=== PATIENT | female | born 1990 | race African-American/Black ===

== ENCOUNTER 2020-03-11 02:40 | Emergency (ER) | payer MEDICAID ==
[~2020-03-11] VITALS: Ht 160 cm; Wt 59.0 kg
[~2020-03-11 02:40] MED LIST: PRENTAB28 PO
[2020-03-11 03:40] LABS: Basophils # (auto) 0 10 ^3/uL (0-0.2); Basophils % (auto) 0.3 % (0.0-2.0); Eosinophils # (auto) 0.1 10 ^3/uL (0-0.8); Eosinophils % (auto) 0.5 % (0.0-7.0); Hematocrit 42.2 % (36.0-46.0); Hemoglobin 14.9 g/dL (12.2-16.2); Lymphocytes # (auto) 0.4 10 ^3/uL (0.4-5.4); Lymphocytes % (auto) 3.9 % (10.0-50.0); Mean Corpuscular Hemoglobin 30.8 pg (28.0-32.0); Mean Corpuscular Hgb Conc. 35.3 g/dL (32.0-36.0); Mean Corpuscular Volume 87.1 fL (80.0-100.0); Monocytes # (auto) 0.4 10 ^3/uL (0-1.3); Monocytes % (auto) 3.6 % (0.0-12.0); Neutrophils # (auto) 9.9 10 ^3/uL (1.6-8.6); Neutrophils % (auto) 91.7 % (37.0-80.0); Nucleated Red Blood Cells % 0.1 %; Platelet Count (auto) 245 10^3/uL (140-450); Red Blood Cells 4.85 10^6/uL (4.0-5.20); Red Cell Distribution Width 13.3 % (11.8-14.3); White Blood Cell 10.8 10^3/uL (4.4-10.8)
[2020-03-11 04:02] LABS: Albumin 4.2 g/dL (3.4-5.0); BUN/Creatinine Ratio 14.8; Calcium 8.9 mg/dL (8.5-10.1); Potassium 3.8 mmol/L (3.5-5.1)
[2020-03-11 04:05] LABS: Bilirubin, Total 0.7 mg/dL (0.2-1.0); Total Protein 7.9 g/dL (6.4-8.2)
[2020-03-11] MEDS ORDERED: SODIUM CHLORIDE 0.9% 500 ML IVB ONE (04:45)
[2020-03-11] MEDS ORDERED: ONDANSETRON HCL 4 MG/2 ML VIAL IV ONE (04:45)
[2020-03-11 05:11] LABS: Amylase 53 U/L (25-115); Lipase 97 U/L (73-393)
[2020-03-11 07:15] VITALS: BP 114/70
[2020-03-11] MEDS ORDERED: ACETAMINOPHEN 325 MG TAB PO ONE ×2 (07:22→07:30)
== END 2020-03-11 09:00 | disposition home or self-care (01) ==
LOC: ER 02:40 → EDBD 02:40 → ER 08:59
DX: K29.00 Acute gastritis without bleeding (principal)
CPT/HCPCS: 36415; 80053; 82150; 83690; 85025; 96361; 96374; 99283; J2405; J7040

== ENCOUNTER 2024-03-09 16:12 | Inpatient (IN) | payer MEDICAID ==
[~2024-03-09] VITALS: Ht 160 cm; Wt 75.5 kg
--- NOTE | 2024-03-09 17:44 | ED.PDOC ---
History of Present Illness HPI Comments HPI: Poor Historian. 34-year-old female 28 weeks gestation surrogate presents to the emergency department after blood drawn yesterday by her PCP's office who told her to go to the ER because your hemoglobin is low. She does not know exactly with the number is. She does feel overall generalized weakness and exertional dyspnea. Patient denies any bleeding from anywhere. She has history of anemia in the past but never received any blood transfusions before. Past Medcial History: Anemia Past Surgical History: REVIEW OF SYSTEMS: CONSTITUTIONAL: Denies acute: fever, diaphoresis, chills, HEAD: Denies acute: headache, photophobia Eyes: Denies acute: Double vision, vision loss, eye pain, eye discharge. EARS: Denies acute: tinnitus, hearing loss, ear discharge, ear pain, THROAT: Denies acute: sore throat, swelling, difficulty swallowing , pain with swallowing, change in voice. NECK: Denies acute: neck pain, neck swelling, stiff neck. HEART: Denies acute : chest pain, palpitations, LUNGS: Denies acute: wheezing, cough, hemoptysis ABDOMEN: Denies acute: abdominal pain, Nausea, Vomiting, diarrhea, melena , hematemesis, hematochezia SKIN: Denies acute: rash, redness, lesions, itchiness. EXTREMITIES: Denies acute: calf pain, numbness, tingling, weakness, denies pain in extremity. Denies acute: Low back pain. Neuro: Denies acute: focal neurological deficit, motor or sensory focal neurological deficit, tremors, seizure like activity, confusion, dizziness, change in mental status, loss of bowel or bladder function, cauda equina like symptoms. : Denies acute: dysuria, hematuria, flank pain, increase in urinary frequency. PSYCH: Denies acute: hallucination, suicidal ideation, homicidal ideation. FEMALE: Denies acute: abnormal vaginal bleeding, foul odor, unusual discharge. PHYSICAL EXAM: General: no acute distress, awake and alert. Head: normocephalic, atraumatic. Neck: supple, trachea is midline, no swelling. Throat: Normal phonation. Eyes:, no erythema, no purulent discharge, no proptosis, no icterus. Heart: regular rate, regular rhythm, no significant murmur appreciated. Lungs: no apparent respiratory distress, Able to speak in full sentences. No wheezing, no rhonchi, no crackles. No stridors Clear to auscultation bilaterally. Abdomen: non tender to palpation, non distended, soft, no guarding, no rebound, + bowel sounds. Gravid abdomen Neuro: Awake, Alert, oriented to name, self, situation, follows commands GCS=15. Speech is normal. Skin: no petechia, no purpura, no cyanosis, non-pale, not jaundice. Lower extremities: --no - Pitting edema no deformity, no focal swelling, no calf TTP. Makes eye contact. moves all four extremities. Face: no apparent facial droop. Ambulating in the ED independently. Chief Complaint: Abnormal LAB's Time Seen by MD: 16:13 Primary Care Provider: Bharathi Reviewed Notes: Nurses Notes, Allergies Allergies: Coded Allergies: NO KNOWN ALLERGIES (Unverified , 12/08/09) Home Meds Reported Medications Vit W/ Iron Carbonyl- ( PLUS IRON) Plus Fe Tab, 1 TAB PO DAILY, #30 TAB 11 Refills 01/27/14 Information Source: Patient Mode of Arrival: Ambulatory Past Medical History PAST MEDICAL HISTORY: Denies Surgical History: Denies all surgeries INKER History: No Pertinent INKER History Family History Family History: Reviewed,noncontributory to illness Social History Smoker: Non-Smoker Alcohol: Occasionally Drugs: Denies Drug Use Was a procedure done? Was a procedure done?: No Differential Dx Considerations may include: Includes but not limited to thyroid disease, encephalopathy, electrolyte abnormality, sepsis, infection, intracranial pathology, drug adverse effects, arrhythmia, kidney insufficiency, ACS, CVA, malignancy, anemia X-Ray, Labs, Meds, VS Vital Signs Date Time Temp Pulse Resp B/P (MAP) Pulse Ox O2 Delivery O2 Flow Rate FiO2 03/09/24 16:57 99.0 113 18 129/74 (92) 99 Lab Test 03/09/24 17:47 Range/Units White Blood Count 12.5 H 4.4-10.8 10^3/uL Red Blood Count 3.87 L 4.0-5.20 10^6/uL Hemoglobin 6.8 *L 12.2-16.2 g/dL Hematocrit 22.1 L 36.0-46.0 % Mean Corpuscular Volume 57.2 L 80.0-100.0 fL Mean Corpuscular Hemoglobin 17.6 L 28.0-32.0 pg Mean Corpuscular Hemoglobin Concent 30.8 L 32.0-36.0 g/dL Red Cell Distribution Width 22.0 H 11.8-14.3 % Platelet Count 358 140-450 10^3/uL Mean Platelet Volume 8.1 6.9-10.8 fL Neutrophils (%) (Auto) 79.4 37.0-80.0 % Lymphocytes (%) (Auto) 11.4 10.0-50.0 % Monocytes (%) (Auto) 7.8 0.0-12.0 % Eosinophils (%) (Auto) 1.1 0.0-7.0 % Basophils (%) (Auto) 0.3 0.0-2.0 % Neutrophils # (Auto) 9.9 H 1.6-8.6 10 ^3/uL Lymphocytes # (Auto) 1.4 0.4-5.4 10 ^3/uL Monocytes # (Auto) 1.0 0-1.3 10 ^3/uL Eosinophils # (Auto) 0.1 0-0.8 10 ^3/uL Basophils # (Auto) 0 0-0.2 10 ^3/uL Nucleated Red Blood Cells 0.3 % Sodium Level 135 L 136-145 mmol/L Potassium Level 3.5 3.5-5.1 mmol/L Chloride Level 106 98-107 mmol/L Carbon Dioxide Level 22 20-31 mmol/L Anion Gap 7 5-15 Blood Urea Nitrogen < 5 L 9-23 mg/dL Creatinine 0.42 L 0.550-1.02 mg/dL Glomerular Filtration Rate Calc 132 >90 mL/min BUN/Creatinine Ratio 11.9 10.0-20.0 Serum Glucose 90 74-106 mg/dL Calcium Level 9.3 8.7-10.4 mg/dL Total Bilirubin 0.5 0.2-1.0 mg/dL Aspartate Amino Transferase (AST) 17 13-40 U/L Alanine Aminotransferase (ALT) 10 7-40 U/L Alkaline Phosphatase 103 46-116 U/L Total Protein 6.7 5.7-8.2 g/dL Albumin 4.2 3.2-4.8 g/dL Time of 1ST Reevaluation: 00:00 Reevaluation 1ST: Unchanged Patient Education/Counseling: Diagnosis, Treatment Family Education/Counseling: Other Comments Patient presented with the above HPI.---symptomatic anemia---workup was initiated. patient was found with the above mentioned diagnosis. the following medications were ordered: please refer to order lists of meds and tests obtained by myself Dr. Fleming. Patient ED course and VS have been stabilized. Patient has been reassessed in the ED and remained in a stable condition. Pertinent incidental findings were discussed with the patient and/or family. Patient/family voices understanding and is agreeable with plan. Patient has been observed in the ED adequate length of time to insure improv ement/stability. Escalation of care considered: Consideration of escalation to observation or admission Patient was ADMITTED to the medicine team for further evaluation and treatment of their presentation. All the reports of any imaging studies that were ordered by myself were reviewed by myself. Departure 1 Departure Time of Disposition: 19:30 Impression: Primary Impression: Symptomatic anemia Disposition: ADMITTED INPATIENT Condition: Guarded Discharged With: Self Critical Care Note Critical Care Time?: Yes (35 min-critical care time only) JESSICA FLEMING DO Mar 09, 2024 17:44
[2024-03-09 18:13] LABS: Basophils # (auto) 0 10 ^3/uL (0-0.2); Lymphocytes # (auto) 1.4 10 ^3/uL (0.4-5.4)
[2024-03-09 18:15] LABS: Basophils % (auto) 0.3 % (0.0-2.0); Eosinophils # (auto) 0.1 10 ^3/uL (0-0.8); Eosinophils % (auto) 1.1 % (0.0-7.0); Hematocrit 22.1 % (36.0-46.0); Lymphocytes % (auto) 11.4 % (10.0-50.0); Mean Corpuscular Hemoglobin 17.6 pg (28.0-32.0); Mean Corpuscular Hgb Conc. 30.8 g/dL (32.0-36.0); Mean Corpuscular Volume 57.2 fL (80.0-100.0); Monocytes % (auto) 7.8 % (0.0-12.0); Neutrophils # (auto) 9.9 10 ^3/uL (1.6-8.6); Neutrophils % (auto) 79.4 % (37.0-80.0); Nucleated Red Blood Cells % 0.3 %; Platelet Count (auto) 358 10^3/uL (140-450); Red Blood Cells 3.87 10^6/uL (4.0-5.20); White Blood Cell 12.5 10^3/uL (4.4-10.8)
[2024-03-09 18:33] LABS: Hemoglobin 6.8 g/dL (12.2-16.2)
[2024-03-09 18:34] LABS: Alanine Aminotransferase 10 U/L (7-40); Albumin 4.2 g/dL (3.2-4.8); Alkaline Phosphatase 103 U/L (46-116); Anion Gap 7 (5-15); Aspartate Aminotransferase 17 U/L (13-40); Bilirubin, Total 0.5 mg/dL (0.2-1.0); Calcium 9.3 mg/dL (8.7-10.4); Carbon Dioxide 22 mmol/L (20-31); Chloride 106 mmol/L (98-107); Total Protein 6.7 g/dL (5.7-8.2)
[2024-03-09 18:38] LABS: BUN/Creatinine Ratio 11.9 (10.0-20.0); Blood Urea Nitrogen < 5 mg/dL (9-23); Glucose 90 mg/dL (74-106); Potassium 3.5 mmol/L (3.5-5.1); Sodium 135 mmol/L (136-145)
--- NOTE | 2024-03-09 22:45 | DVHHPRES ---
History of Present Illness Resident Creating Document: DORA BARTON RESIDENT History of Present Illness Patient is a 34-year-old female, A0, twenty-eight weeks with no significant past medical history, who comes in from her home connect lpn office. Per patient, she was noted to have a very low hemoglobin level at her home connect lpn in his office where she was told to go to the ER for blood transfusion. Patient denies ever receiving transfusion before in the past. Denies any blood in her stool, urine or any vomiting. Per patient, she is recently recovering from a flu-like illness for which she was also prescribed azithromycin. On review of systems she is complaining of fatigue, positional lightheadedness, congestion, rhinorrhea, sore throat, dry cough and some shortness of breath. Patient's hemoglobin was noted to be 6.8, hematocrit 22.1. After type and screen, patient received 1 PRBC transfusion. home connect lpn was consulted. Past Medical History Denies Past Surgical History section x2 Past Social History Smoking: Quit 8 months ago, prior to that was using vape Alcohol: Occasionally Drugs: Denies Review of Systems Constitutional: Yes: Chills, Malaise; No: Fever, Sweats, Weakness, Other Eyes: No: Pain, Vision change, Conjunctivae inflammation, Eyelid inflammation, Other, Redness ENT: Nose discharge, Nose congestion, Throat pain; No: Ear pain, Ear discharge, Nose pain, Mouth pain, Mouth swelling, Throat swelling, Other Respiratory: Cough, SOB with excertion; No: Dry, Shortness of breath, Wheezing, Hemoptysis, Pleuritic Pain, Sputum, Wheezing, Other Cardiovascular: No: Chest Pain, Palpitations, Orthopnea, Paroxysmal Noc. Dyspnea, Edema, Lt Headedness, Other Gastrointestinal: No: Nausea, Vomiting, Abdominal Pain, Diarrhea, Constipation, Melena, Hematochezia, Other Genitourinary: No Dysuria, No Frequency, No Incontinence, No Hematuria, No Retention, No Other Musculoskeletal: No: other, neck pain, shoulder pain, arm pain, back pain, hand pain, leg pain, foot pain Skin: No: Rash, Lesions, Jaundice, Bruising, Other Neurological: No: Weakness, Numbness, Incoordination, Change in speech, Confusion, Seizures, Other Allergies: Coded Allergies: NO KNOWN ALLERGIES (Unverified , 12/08/09) Exam Vital Signs Vital Signs Date Time Temp Pulse Resp B/P (MAP) Pulse Ox O2 Delivery O2 Flow Rate FiO2 03/09/24 16:57 99.0 113 18 129/74 (92) 99 General Appearance: Alert, Oriented X3, Cooperative, No acute distress HEENT: Atraumatic, PERRLA, EOMI, Other (Conjunctival pallor noted) Respiratory: Clear to auscultation, Normal air movement Cardiovascular: Normal S1, Normal S2, No murmurs Abdominal: Normal bowel sounds, Soft, No tenderness Extremities: No clubbing, No edema, No tenderness/swelling Skin: No rashes, No significant lesion Neuro: Normal gait, Normal speech, Strength at 5/5 X4 ext, Sensation intact Psych/Mental Status: Mental status NL, Mood NL Labs/Xrays Labs Test 03/09/24 17:47 Range/Units White Blood Count 12.5 H 4.4-10.8 10^3/uL Red Blood Count 3.87 L 4.0-5.20 10^6/uL Hemoglobin 6.8 *L 12.2-16.2 g/dL Hematocrit 22.1 L 36.0-46.0 % Mean Corpuscular Volume 57.2 L 80.0-100.0 fL Mean Corpuscular Hemoglobin 17.6 L 28.0-32.0 pg Mean Corpuscular Hemoglobin Concent 30.8 L 32.0-36.0 g/dL Red Cell Distribution Width 22.0 H 11.8-14.3 % Platelet Count 358 140-450 10^3/uL Mean Platelet Volume 8.1 6.9-10.8 fL Neutrophils (%) (Auto) 79.4 37.0-80.0 % Lymphocytes (%) (Auto) 11.4 10.0-50.0 % Monocytes (%) (Auto) 7.8 0.0-12.0 % Eosinophils (%) (Auto) 1.1 0.0-7.0 % Basophils (%) (Auto) 0.3 0.0-2.0 % Neutrophils # (Auto) 9.9 H 1.6-8.6 10 ^3/uL Lymphocytes # (Auto) 1.4 0.4-5.4 10 ^3/uL Monocytes # (Auto) 1.0 0-1.3 10 ^3/uL Eosinophils # (Auto) 0.1 0-0.8 10 ^3/uL Basophils # (Auto) 0 0-0.2 10 ^3/uL Nucleated Red Blood Cells 0.3 % Sodium Level 135 L 136-145 mmol/L Potassium Level 3.5 3.5-5.1 mmol/L Chloride Level 106 98-107 mmol/L Carbon Dioxide Level 22 20-31 mmol/L Anion Gap 7 5-15 Blood Urea Nitrogen < 5 L 9-23 mg/dL Creatinine 0.42 L 0.550-1.02 mg/dL Glomerular Filtration Rate Calc 132 >90 mL/min BUN/Creatinine Ratio 11.9 10.0-20.0 Serum Glucose 90 74-106 mg/dL Calcium Level 9.3 8.7-10.4 mg/dL Total Bilirubin 0.5 0.2-1.0 mg/dL Aspartate Amino Transferase (AST) 17 13-40 U/L Alanine Aminotransferase (ALT) 10 7-40 U/L Alkaline Phosphatase 103 46-116 U/L Total Protein 6.7 5.7-8.2 g/dL Albumin 4.2 3.2-4.8 g/dL Assessment/Plan Assessment/Plan Symptomatic anemia, possibly due to iron deficiency - hemoglobin 6.8, hematocrit 22.1 - MCV 57.2 - serum iron 18, TIBC 543, % saturation 3.3, ferritin 4.7 - s/p 1 PRBC transfusion - ordered stool occult blood - pelvic USG: Single living intrauterine gestation as above Sirs with no end-organ damage, rule out infection - ordered COVID influenza -ordered UA UDS - consulted home connect lpn DVT prophylaxis: SCDs Goals of care: Full code, discussed for >16 minutes on 03/09/2024 Plan discussed with patient Plan discussed with Dr. Ramirez Plan discussed with: Patient, Other (RN) My Orders Orders - DORA BARTON RESIDENT Procedure Category Date Status Time Admit ADMIT 03/09/24 Transmitted 21:53 Code Status CODE 03/09/24 Transmitted 21:53 Vital Signs [facility] [place] 03/09/24 In Process 21:53 Review Orders With [facility] [place] 03/09/24 In Process Adm. 21:53 Notify Of Changes JACQUIE 03/09/24 In Process From Base 21:53 Advance Directive JACQUIE 03/09/24 In Process 21:53 Patient Condition ORDERS 03/09/24 Transmitted 21:53 Allergies JACQUIE 03/09/24 In Process 21:53 Notify Of Changes JACQUIE 03/09/24 In Process From Base 21:53 Covid19 Antigen [facility] 03/09/24 Logged Rapid Influenza A&B LAB 03/09/24 Logged 22:39 Urinalysis LAB 03/09/24 Logged 22:39 Drug Screen LAB 03/09/24 Logged 22:39 Regular Diet DIET 03/10/24 Transmitted Breakfast Encourage Adequate JACQUIE 03/09/24 In Process Fluid Intak 22:39 Encourage Activity As JACQUIE 03/09/24 In Process Tolerate 22:39 Obtain Consent For: ORDERS 03/09/24 Transmitted 22:40 Packedcell-Noactive BBK 03/09/24 Logged Bleeding 22:40 Administer Blood JACQUIE 03/09/24 In Process Products 22:40 DORA BARTON RESIDENT Mar 09, 2024 22:45
[2024-03-09 23:39] VITALS: PULSE 105; RESP 18; O2SAT 98
[2024-03-09 23:45] LABS: Urine Bacteria FEW /hpf (None Seen); Urine Blood Negative /uL (Negative); Urine Clarity Clear (Clear); Urine Color Yellow (Yellow); Urine Mucus FEW (None Seen); Urine Protein, UAD 1+ (Negative); Urine Specific Gravity 1.028 (1.001-1.035); Urine Squamous Epithelial Cell FEW /hpf (<5); Urine Urobilinogen Normal (Negative); Urine WBC 5 /HPF (0-5); Urine pH 5.5 (5.0-9.0)
[2024-03-10] VITALS (18 sets, daily range): BP systolic 100–127; BP diastolic 50–70; PULSE 90–112; RESP 14–21; TEMP 97.7–98.7; O2SAT 9–100
[2024-03-10 00:14] LABS: Amphetamine Screen, Urine Neg (NEGATIVE); Barbiturate Scree,Urine Neg (NEGATIVE); Benzodiazephine Screen, Urine Neg (NEGATIVE); Cannabinoid Screen, Urine Neg (NEGATIVE); Cocaine Screen, Urine Neg (NEGATIVE); Opiate Scree,Urine Neg (NEGATIVE); Phencyclidine Screen, Urine Neg (NEGATIVE)
[2024-03-10 00:27] LABS: Rapid Influenza A Negative (Negative); Rapid Influenza B Negative (Negative)
[2024-03-10 00:28] LABS: COVID19 ANTIGEN SOFIA FIA NEGATIVE (NEGATIVE)
[2024-03-10 00:51] LABS: % Iron Saturation 3.3 % (15-50)
--- NOTE | 2024-03-10 01:13 | DVH ---
EXAM: US OB ULTRASOUND CLINICAL HISTORY: 28weeks with anemia TECHNIQUE: Real-time high-resolution grayscale and color flow ultrasound imaging the gravid uterus i s performed. FINDINGS: The following measurements are obtained (cm): BPD: 7.3 HC: 26.9 AC: 25.2 FL: 5.4 Estimated gestational age by ultrasound: 29 weeks 1 day. Estimated date of delivery: 05/25/2024 Estimated weight: 1339g heart rate: 163 beats per minute Amniotic fluid: Visually adequate. MVP 6.2 cm. Cervix: Measures approximately 3.5 cm in length and appears closed. Placenta: Anterior. No definite evidence of abruption or previa. IMPRESSION: Single living intrauterine gestation as above. HS:Y
[2024-03-10] MEDS ORDERED: FERR1TAB31 PO (03:59)
[2024-03-10 07:33] LABS: Basophils # (auto) 0.1 10 ^3/uL (0-0.2); Lymphocytes # (auto) 1.4 10 ^3/uL (0.4-5.4); Neutrophils # (auto) 10.5 10 ^3/uL (1.6-8.6); White Blood Cell 13.1 10^3/uL (4.4-10.8)
[2024-03-10 07:37] LABS: Basophils % (auto) 0.5 % (0.0-2.0); Eosinophils # (auto) 0.2 10 ^3/uL (0-0.8); Eosinophils % (auto) 1.3 % (0.0-7.0); Hematocrit 22.1 % (36.0-46.0); Mean Corpuscular Hemoglobin 19.4 pg (28.0-32.0); Mean Corpuscular Hgb Conc. 31.3 g/dL (32.0-36.0); Mean Corpuscular Volume 61.9 fL (80.0-100.0); Monocytes # (auto) 0.9 10 ^3/uL (0-1.3); Monocytes % (auto) 6.8 % (0.0-12.0); Neutrophils % (auto) 80.4 % (37.0-80.0); Nucleated Red Blood Cells % 0.1 %; Platelet Count (auto) 289 10^3/uL (140-450); Red Blood Cells 3.57 10^6/uL (4.0-5.20)
[2024-03-10 07:59] LABS: Hemoglobin 6.9 g/dL (12.2-16.2)
[2024-03-10 08:40] LABS: Anisocytosis Slight; Hypochromia Moderate; Platelet Estimate Adequate
[2024-03-10 08:41] LABS: Ovalocytes FEW; Stomatocytes Few; Tear Drop Cells FEW
[2024-03-10 09:06] LABS: Chloride 107 mmol/L (98-107); Sodium 136 mmol/L (136-145)
[2024-03-10 09:07] LABS: Anion Gap 7 (5-15); Carbon Dioxide 22 mmol/L (20-31)
[2024-03-10 09:08] LABS: Calcium 8.9 mg/dL (8.7-10.4)
[2024-03-10 09:09] LABS: Potassium 3.2 mmol/L (3.5-5.1)
[2024-03-10 09:13] LABS: BUN/Creatinine Ratio 12.2 (10.0-20.0); Blood Urea Nitrogen < 5 mg/dL (9-23); Glucose 71 mg/dL (74-106)
--- NOTE | 2024-03-10 12:05 | DVHPN2 ---
Subjective The patient is seen and examined at bedside. The patient is tired. Reviewed: Care Plan, H&P, Labs, Medications, Previous Orders Changes from previous H/P or p: No Changes Eyes: No Pain, No Vision change, No Conjunctivae inflammation, No Eyelid inflammation, No Other, No Redness ENT: No Ear pain, No Ear discharge, No Nose pain; Nose discharge, Nose congestion; No Mouth pain, No Mouth swelling; Throat pain; No Throat swelling, No Other Cardiovascular: No Chest Pain, No Palpitations, No Orthopnea, No Paroxysmal Noc. Dyspnea, No Edema, No Lt Headedness, No Other Respiratory: Cough; No Dry, No Shortness of breath; SOB with excertion; No Wheezing, No Hemoptysis, No Pleuritic Pain, No Sputum, No Other Gastrointestinal: No Nausea, No Vomiting, No Abdominal Pain, No Diarrhea, No Constipation, No Melena, No Hematochezia, No Other Genitourinary: No Dysuria, No Frequency, No Incontinence, No Hematuria, No Retention, No Other Musculoskeletal: No other, No neck pain, No shoulder pain, No arm pain, No back pain, No hand pain, No leg pain, No foot pain Skin: No Rash, No Lesions, No Jaundice, No Bruising, No Other Objective Vitals Vital Signs Date Time Temp Pulse Resp B/P (MAP) Pulse Ox O2 Delivery O2 Flow Rate FiO2 03/10/24 10:29 98.7 109 18 110/61 98.7 03/10/24 09:00 98 03/10/24 08:00 Room Air* 0 21 Intake/Output Intake and Output 03/10/24 07:00 Intake Total 300 ml Balance 300 ml Intake Blood Product 300 ml # Voids 1 General Appearance: Alert, Oriented X3, Cooperative, No acute distress Neck: Supple Lungs: Clear to auscultation, Normal air movement Cardiovascular: Regular rate, Normal S1, Normal S2, No murmurs, Gallops, Rubs Abdomen: Normal bowel sounds, Soft, No tenderness Neuro: Cranial nerves 3-12 NL Psych/Mental Status: Mental status NL Laboratory Results Laboratory Tests 03/10/24 07:11 Chemistry Test 03/09/24 17:47 03/10/24 07:11 Albumin 4.2 g/dL (3.2-4.8) Calcium Level 9.3 mg/dL (8.7-10.4) 8.9 mg/dL (8.7-10.4) Total Protein 6.7 g/dL (5.7-8.2) LFT Test 03/09/24 17:47 Alanine Aminotransferase (ALT) 10 U/L (7-40) Alkaline Phosphatase 103 U/L (46-116) Aspartate Amino Transferase (AST) 17 U/L (13-40) Total Bilirubin 0.5 mg/dL (0.2-1.0) Urinalysis Test 03/09/24 23:38 Urine Color Yellow (Yellow) Urine Clarity Clear (Clear) Urine pH 5.5 (5.0-9.0) Urine Specific [place] 1.028 (1.001-1.035) Urine Protein 1+ (Negative) H Urine Ketones 1+ (Negative) H Urine Blood Negative /uL (Negative) Urine Nitrite Negative (Negative) Urine Bilirubin Negative (Negative) Urine Urobilinogen Normal mg/dL (Negative) Urine Leukocyte Esterase Negative /uL (Negative) Urine RBC 1 /hpf (0 - 4) Urine Microscopic WBC 5 /HPF (0-5) Urine Squamous Epithelial Cells Few /hpf (<5) Urine Bacteria Few /hpf (None Seen) H Urine Mucus Few (None Seen) Urine Glucose Trace mg/dL (Normal) Labs and/or images reviewed: Labs reviewed by me Assessment/Plan Assessment/Plan Symptomatic anemia, possibly due to iron deficiency Intrauterine , 28 weeks Sirs with no end-organ damage, rule out infection Continuing current management. Continuing with blood transfusions. Waiting for OBGYN to see the patient. Plan discussed with: Patient Date of Service: Mar 10, 2024 Billing Provider: ORESTES HEIN MD Common Visit Codes: [id number] INP/OBS CARE(HIGH) ORESTES HEIN MD Mar 10, 2024 12:05
[2024-03-10] MEDS: LACTATED RINGER'S 1,000 ML IV SCH (14:41)
--- NOTE | 2024-03-10 19:32 | DVHINCON2 ---
DATE OF CONSULTATION: 03/10/2024 REASON FOR CONSULTATION: and anemia. HISTORY OF PRESENT ILLNESS: The patient is a 34-year-old 4, para 3 with EDC 05/26, estimated gestational age of 28+ weeks, admitted for severe anemia, hemoglobin of 6. The patient was given 3 units of blood. She sees Dr. Alvarenga and she was found to have generalized weakness and exertional dyspnea for which she was sent to get blood transfusion. PAST MEDICAL HISTORY: Anemia. PAST SURGICAL HISTORY: . SOCIAL HISTORY: The patient quit smoking 8 months ago. FAMILY HISTORY: None. ALLERGIES: No known drug allergies. REVIEW OF SYSTEMS: CONSTITUTIONAL: Positive for weakness, fatigue. CARDIOVASCULAR: Denies chest pain, palpitations. RESPIRATORY: Denies wheezing, cough, and hemoptysis. GASTROINTESTINAL: Denies nausea, vomiting, constipation. NEUROLOGIC: Denies any motor or sensory deficits. GENITOURINARY: Denies hematuria, flank pain. No vaginal bleeding. PSYCHIATRIC: Denies suicidal ideation or depression. PHYSICAL EXAMINATION: VITAL SIGNS: Stable, afebrile. HEENT: Pale conjunctivae. CARDIOVASCULAR: Regular rate and rhythm. LUNGS: Clear to auscultation. BREASTS: Symmetrical. No masses. ABDOMEN: Gravid. Positive heart. PELVIC: Cervix closed, thick, high. EXTREMITIES: No clubbing, cyanosis, or edema. IMPRESSION: * Intrauterine at 29 weeks. * Severe anemia. * Status post blood transfusion. * x2. RECOMMENDATION: Patient has been transfused. NST q. shift. Patient will follow up with OG/SYSTEMS TECHNICIAN upon discharge. We will sign off. Thank you very much for this consultation. DO JAVAN Chavez TID: [id number] RECEIPT: [id number]
[2024-03-11 01:00] VITALS: BP 104/51; PULSE 95; RESP 18; TEMP 97.5; O2SAT 98
[2024-03-11 05:00] VITALS: BP 100/56; PULSE 105; RESP 20; TEMP 97.9; O2SAT 98
[2024-03-11 08:00] VITALS: PULSE 108; O2SAT 9
[2024-03-11 09:00] VITALS: BP 111/51; PULSE 104; RESP 20; TEMP 98.4; O2SAT 98
[2024-03-11 09:31] LABS: Hematocrit 24.9 % (36.0-46.0); Hemoglobin 8.1 g/dL (12.2-16.2)
[2024-03-11] MEDS: PRENATAL VITAMIN TAB PO SCH (11:11)
--- NOTE | 2024-03-11 11:57 | DVHPN2 ---
Eyes: No Pain, No Vision change, No Conjunctivae inflammation, No Eyelid inflammation, No Other, No Redness ENT: No Ear pain, No Ear discharge, No Nose pain; Nose discharge, Nose congestion; No Mouth pain, No Mouth swelling; Throat pain; No Throat swelling, No Other Cardiovascular: No Chest Pain, No Palpitations, No Orthopnea, No Paroxysmal Noc. Dyspnea, No Edema, No Lt Headedness, No Other Respiratory: Cough; No Dry, No Shortness of breath; SOB with excertion; No Wheezing, No Hemoptysis, No Pleuritic Pain, No Sputum, No Other Gastrointestinal: No Nausea, No Vomiting, No Abdominal Pain, No Diarrhea, No Constipation, No Melena, No Hematochezia, No Other Genitourinary: No Dysuria, No Frequency, No Incontinence, No Hematuria, No Retention, No Other Musculoskeletal: No other, No neck pain, No shoulder pain, No arm pain, No back pain, No hand pain, No leg pain, No foot pain Skin: No Rash, No Lesions, No Jaundice, No Bruising, No Other Objective Vitals Vital Signs Date Time Temp Pulse Resp B/P (MAP) Pulse Ox O2 Delivery O2 Flow Rate FiO2 03/11/24 09:00 98.4 104 20 111/51 (71) 98 98.4 03/11/24 08:00 Room Air* 0 21 Intake/Output Intake and Output 03/11/24 07:00 Intake Total 2490 ml Balance 2490 ml Intake Oral 2190 ml Blood Product 300 ml # Voids 9 # Bowel Movements 2 Medications Current Medications Medications Dose Ordered Sig/Bartolome Route Start Time Stop Time Status Last Admin Dose Admin Lactated Ringer's 1,000 ml @ 50 mls/hr Q20H IV 03/10/24 14:15 03/11/24 10:15 50 MLS/HR Prenat Multivit/ Russell/Iron/Folic Ac 1 DAILY PO 03/11/24 10:00 03/11/24 11:11 1 Laboratory Results Laboratory Tests 03/10/24 07:11 03/11/24 08:41 Urinalysis Test 03/09/24 23:38 Urine Color Yellow (Yellow) Urine Clarity Clear (Clear) Urine pH 5.5 (5.0-9.0) Urine Specific [place] 1.028 (1.001-1.035) Urine Protein 1+ (Negative) H Urine Ketones 1+ (Negative) H Urine Blood Negative /uL (Negative) Urine Nitrite Negative (Negative) Urine Bilirubin Negative (Negative) Urine Urobilinogen Normal mg/dL (Negative) Urine Leukocyte Esterase Negative /uL (Negative) Urine RBC 1 /hpf (0 - 4) Urine Microscopic WBC 5 /HPF (0-5) Urine Squamous Epithelial Cells Few /hpf (<5) Urine Bacteria Few /hpf (None Seen) H Urine Mucus Few (None Seen) Urine Glucose Trace mg/dL (Normal) Microbiology Microbiology Date/Time Source Procedure Growth Status 03/10/24 23:38 Voided Urine Urine Culture - Preliminary Resulted ORESTES HEIN MD Mar 11, 2024 11:57
--- NOTE | 2024-03-11 12:58 | DVHDS2 ---
Discharge Summary Date of Admission Mar 09, 2024 at 21:53 Date of Discharge: Mar 11, 2024 Admitting Diagnosis Symptomatic anemia, possibly due to iron deficiency Intrauterine , 28 weeks Sirs with no end-organ damage, rule out infection Labs/Diagnostic Data: Laboratory Results Test 03/11/24 09:27 03/11/24 08:41 03/10/24 07:11 03/10/24 00:19 Stool Occult Blood Negative (Negative) Stool Occult Blood Sample #3 (Negative) Hemoglobin 8.1 g/dL (12.2-16.2) Hematocrit 24.9 % (36.0-46.0) White Blood Count 13.1 10^3/uL (4.4-10.8) Red Blood Count 3.57 10^6/uL (4.0-5.20) Mean Corpuscular Volume 61.9 fL (80.0-100.0) Mean Corpuscular Hemoglobin 19.4 pg (28.0-32.0) Mean Corpuscular Hemoglobin Concent 31.3 g/dL (32.0-36.0) Red Cell Distribution Width 26.0 % (11.8-14.3) Platelet Count 289 10^3/uL (140-450) Mean Platelet Volume 8.0 fL (6.9-10.8) Neutrophils (%) (Auto) 80.4 % (37.0-80.0) Lymphocytes (%) (Auto) 11.0 % (10.0-50.0) Monocytes (%) (Auto) 6.8 % (0.0-12.0) Eosinophils (%) (Auto) 1.3 % (0.0-7.0) Basophils (%) (Auto) 0.5 % (0.0-2.0) Neutrophils # (Auto) 10.5 10 ^3/uL (1.6-8.6) Lymphocytes # (Auto) 1.4 10 ^3/uL (0.4-5.4) Monocytes # (Auto) 0.9 10 ^3/uL (0-1.3) Eosinophils # (Auto) 0.2 10 ^3/uL (0-0.8) Basophils # (Auto) 0.1 10 ^3/uL (0-0.2) Nucleated Red Blood Cells 0.1 % Platelet Estimate Adequate Hypochromasia (manual) Moderate Anisocytosis (manual) Slight Microcytosis Moderate Tear Drop Cells Few Ovalocytes Few Stomatocytes Few Sodium Level 136 mmol/L (136-145) Potassium Level 3.2 mmol/L (3.5-5.1) Chloride Level 107 mmol/L (98-107) Carbon Dioxide Level 22 mmol/L (20-31) Anion Gap 7 (5-15) Blood Urea Nitrogen < 5 mg/dL (9-23) Creatinine 0.41 mg/dL (0.550-1.02) Glomerular Filtration Rate Calc 133 mL/min (>90) BUN/Creatinine Ratio 12.2 (10.0-20.0) Serum Glucose 71 mg/dL (74-106) Calcium Level 8.9 mg/dL (8.7-10.4) Reticulocyte Count (auto) 2.20 % (0.5-1.5) Iron Level 18 ug/dL (50-170) Total Iron Binding Capacity 543 ug/dL (250-425) Percent Iron Saturation 3.3 % (15-50) Ferritin 4.7 ng/mL (10-291) Lactate Dehydrogenase 204 U/L (120-246) Test 03/09/24 23:38 03/09/24 23:30 03/09/24 17:47 Urine Color Yellow (Yellow) Urine Clarity Clear (Clear) Urine pH 5.5 (5.0-9.0) Urine Specific [place] 1.028 (1.001-1.035) Urine Protein 1+ (Negative) Urine Ketones 1+ (Negative) Urine Blood Negative /uL (Negative) Urine Nitrite Negative (Negative) Urine Bilirubin Negative (Negative) Urine Urobilinogen Normal mg/dL (Negative) Urine Leukocyte Esterase Negative /uL (Negative) Urine RBC 1 /hpf (0 - 4) Urine Microscopic WBC 5 /HPF (0-5) Urine Squamous Epithelial Cells Few /hpf (<5) Urine Bacteria Few /hpf (None Seen) Urine Mucus Few (None Seen) Urine Glucose Trace mg/dL (Normal) Urine Opiates Screen Neg (NEGATIVE) Urine Fentanyl Screen Neg (NEGATIVE) Urine Barbiturates Screen Neg (NEGATIVE) Urine Phencyclidine Screen Neg (NEGATIVE) Urine Amphetamines Screen Neg (NEGATIVE) Urine Benzodiazepines Screen Neg (NEGATIVE) Urine Cocaine Screen Neg (NEGATIVE) Urine Cannabinoids Screen Neg (NEGATIVE) Influenza Type A Antigen Negative (Negative) Influenza Type B Antigen Negative (Negative) SARS-CoV-2 Antigen (Rapid) Negative (NEGATIVE) Total Bilirubin 0.5 mg/dL (0.2-1.0) Aspartate Amino Transferase (AST) 17 U/L (13-40) Alanine Aminotransferase (ALT) 10 U/L (7-40) Alkaline Phosphatase 103 U/L (46-116) Total Protein 6.7 g/dL (5.7-8.2) Albumin 4.2 g/dL (3.2-4.8) Other Laboratory Tests 03/11/24 08:41 03/10/24 07:11 Brief Hx & Hospital Course: This is a 34 years old female,A0, with 29 week with no significant past medical history who was referred by her OBGYN physician , for further evaluation of her anemia. Per OBGYN office the patient's hemoglobin level is very low however the patient did not know how low. The patient was found to have hemoglobin of 6.8 and hematocrit of 22.1. The patient received 2 packed red blood cell and today her hemoglobin stable at 8.1. Her fetus monitor is stable. The patient will be discharged home today. Advised the patient to continuing to take her vitamin including IN. Follow up with her primary care physician 1-2 weeks. Follow up with her OBGYN per schedule. Activity as tolerated. Diet per home diet. Recommend eating more red meat and green leafy vegetable for more iron supplement. Physical exam: HEENT: Normocephalic atraumatic pupils equal react to light and accommodation. Extraocular muscles intact, conjunctiva pink, oropharynx moist, no thrush, no exudate. Lymphatic: No lymphadenopathy Cardiovascular exam: S1, S2 was heard. No murmurs, rubs, gallops Lung: Clear on auscultation bilaterally, no wheeze, rale, rhonchi. GI: Abdominal soft, nondistended, nontenderness, positive bowel sounds. Extremity: No crepitus, cyanosis, edema. Pedal pulses present bilateral. Full range of motion. Skin: Normal turgor, no rash. Psych: Alert, oriented x3. Neurology: No focal deficits, cranial nerve II to XII grossly intact. This medical document was created using an electronic medical record system with [employer] direct computerized dictation system. Although this document has been carefully reviewed, there may still be some phonetic and typographical errors. These areas are purely typographical due to imperfections of the software programs, and do not reflect any compromise in the patient's medical care. Condition at Discharge: Stable Final Diagnosis/Problems List Symptomatic anemia, possibly due to iron deficiency Intrauterine , 28 weeks Sirs with no end-organ damage, rule out infection Discharge Disposition: Home Discharge Instruct/Medications Diet: Regular Activity: No Restrictions, As Tolerated Follow Up/Referral: pcp 1-2 weeks Medications: Resume home meds. Discharge Statement: "Patient was advised to return to the ER or call 911 if any headaches, dizziness, shortness of breath, chest pain, abdominal pain, bleeding, fevers, or worsening of medical condition. Patient was counseled about treatment plan, medications, possible side effects, patientverbalized understanding. All questions were answered to the best of my ability. This discharge took greater then 30 minutes in planning, reviewing documentation, counseling the patient, and discussing with other team members." ASSESSMENT ASSESSMENT Assessment anemia Date of Service: Mar 11, 2024 Billing Provider: ORESTES HEIN MD Common Visit Codes: 30522-EGM/OBS DISCH DAY >30min ORESTES HEIN MD Mar 11, 2024 12:58
[2024-03-11 13:00] VITALS: BP 97/44; PULSE 97; RESP 20; TEMP 98; O2SAT 97
[2024-03-11 13:25] VITALS: TEMP 36.9
== END 2024-03-11 14:00 | disposition home or self-care (01) | DRG 566 ==
LOC: ER 16:12 → TELE 21:53 → TELE-WESTW 03-10 01:34
PROVIDERS: ATTEND Internal Medicine
PROC: 30233N1 Transfusion of Nonautologous Red Blood Cells into Peripheral Vein, Percutaneous Approach (ICD-10-PCS; principal; 2024-03-10)
DX: O99.013 Anemia complicating pregnancy, third trimester (principal); R65.10 Systemic inflammatory response syndrome (SIRS) of non-infectious origin without acute organ dysfunction; O98.813 Other maternal infectious and parasitic diseases complicating pregnancy, third trimester; Z3A.28 28 weeks gestation of pregnancy; D50.9 Iron deficiency anemia, unspecified; Z87.891 Personal history of nicotine dependence
CPT/HCPCS: 36415; 76805; 80048; 80053; 80307; 81001; 82270; 82728; 83540; 83550; 83615; 85014; 85018; 85025; 85045; 86850; 86900; 86901; 86920; 87086; 87426; 87804; 99291; G0378

== ENCOUNTER 2024-03-31 22:34 | Emergency (ER) | payer MEDICAID ==
[~2024-03-31 22:34] MED LIST changes: +FERR1TAB31 PO
== END 2024-03-31 23:04 | disposition left against medical advice (07) ==
LOC: ER 22:34
DX: M54.2 Cervicalgia (principal); R06.02 Shortness of breath; Z53.21 Procedure and treatment not carried out due to patient leaving prior to being seen by health care provider

== ENCOUNTER 2024-04-01 01:30 | Emergency (ER) | payer MEDICAID ==
[~2024-04-01] VITALS: Ht 162.6 cm; Wt 71.7 kg
[2024-04-01 01:35] VITALS: BP 116/69; PULSE 104; RESP 13; TEMP 98.7; O2SAT 99
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
== END 2024-04-01 02:12 | disposition home or self-care (01) ==
LOC: ER 01:30
DX: O26.893 Other specified pregnancy related conditions, third trimester (principal); S13.4XXA Sprain of ligaments of cervical spine, initial encounter; S23.3XXA Sprain of ligaments of thoracic spine, initial encounter; S29.012A Strain of muscle and tendon of back wall of thorax, initial encounter; S33.5XXA Sprain of ligaments of lumbar spine, initial encounter; Z3A.32 32 weeks gestation of pregnancy; V49.9XXA Car occupant (driver) (passenger) injured in unspecified traffic accident, initial encounter; Y93.89 Activity, other specified; Y92.410 Unspecified street and highway as the place of occurrence of the external cause; Y99.8 Other external cause status

== ENCOUNTER 2024-06-20 02:29 | Emergency (ER) | payer MEDICAID ==
[~2024-06-20] VITALS: Ht 162.6 cm; Wt 62.0 kg
[2024-06-20 02:40] VITALS: BP 105/56; PULSE 95; RESP 18; TEMP 97.5; O2SAT 97
[2024-06-20] MEDS ORDERED: KETOROLAC TROMETH 30 MG/ML 1ML VIAL IM ONE (03:00)
[2024-06-20] MEDS ORDERED: ACETAMINOPHEN 500 MG TAB or CAP PO ONE (03:00)
[2024-06-20] MEDS ORDERED: traMADol HCL 50 MG TAB PO ONE (03:00)
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
[2024-06-20 03:48] LABS: Alanine Aminotransferase 20 U/L (7-40); Albumin 4.4 g/dL (3.2-4.8); Anion Gap 13 (5-15); Aspartate Aminotransferase 15 U/L (13-40); BUN/Creatinine Ratio 14.6 (10.0-20.0); Bilirubin, Total 0.4 mg/dL (0.2-1.0); Glucose 102 mg/dL (74-106); Potassium 3.6 mmol/L (3.5-5.1); Sodium 143 mmol/L (136-145); Total Protein 7.1 g/dL (5.7-8.2)
[2024-06-20 03:50] LABS: Alkaline Phosphatase 136 U/L (46-116); Blood Urea Nitrogen 6 mg/dL (9-23); Carbon Dioxide 20 mmol/L (20-31); Chloride 110 mmol/L (98-107)
[2024-06-20 04:18] LABS: Basophils # (auto) 0 10 ^3/uL (0-0.2); Basophils % (auto) 0.4 % (0.0-2.0); Eosinophils # (auto) 0.1 10 ^3/uL (0-0.8); Eosinophils % (auto) 1.2 % (0.0-7.0); Hematocrit 40.1 % (36.0-46.0); Hemoglobin 13.8 g/dL (12.2-16.2); Lymphocytes # (auto) 1.7 10 ^3/uL (0.4-5.4); Lymphocytes % (auto) 22.1 % (10.0-50.0); Mean Corpuscular Hemoglobin 29.3 pg (28.0-32.0); Mean Corpuscular Hgb Conc. 34.4 g/dL (32.0-36.0); Mean Corpuscular Volume 85.2 fL (80.0-100.0); Monocytes # (auto) 0.5 10 ^3/uL (0-1.3); Monocytes % (auto) 6.2 % (0.0-12.0); Neutrophils # (auto) 5.4 10 ^3/uL (1.6-8.6); Neutrophils % (auto) 70.1 % (37.0-80.0); Nucleated Red Blood Cells % 0.2 %; Platelet Count (auto) 261 10^3/uL (140-450); Red Blood Cells 4.71 10^6/uL (4.0-5.20); White Blood Cell 7.7 10^3/uL (4.4-10.8)
== END 2024-06-20 04:36 | disposition left against medical advice (07) ==
LOC: ER 02:29
DX: R10.32 Left lower quadrant pain (principal); Z98.890 Other specified postprocedural states
CPT/HCPCS: 36415; 80053; 85025